=== PATIENT | female | born 1985 | race Caucasian/White ===

== ENCOUNTER 2019-06-03 09:07 | Emergency (ER) | payer OTHER ==
[~2019-06-03] VITALS: Ht 175.3 cm; Wt 79.4 kg
[2019-06-03 09:19] VITALS: Ht 175.3 cm; Wt 79.4 kg
[2019-06-03 12:17] VITALS: BP 112/62
== END 2019-06-03 12:17 | disposition home or self-care (01) ==
LOC: ED 09:07
DX: S51.012A Laceration without foreign body of left elbow, initial encounter (principal); S63.613A Unspecified sprain of left middle finger, initial encounter; V80.010A Animal-rider injured by fall from or being thrown from horse in noncollision accident, initial encounter; Y93.89 Activity, other specified; Y92.89 Other specified places as the place of occurrence of the external cause; Y99.8 Other external cause status
CPT/HCPCS: Q0092